=== PATIENT | male | born 1980 | race Hispanic/Latino ===

== ENCOUNTER 2019-09-26 08:03 | Outpatient (CLI) | payer OTHER ==
--- NOTE | 2019-09-29 09:52 | Ultrasound Report ---
BILATERAL DIGITAL DIAGNOSTIC MAMMOGRAM -- 09/26/2019 RIGHT COMPLETE BREAST ULTRASOUND INDICATION: Right breast yellow nipple discharge and pain. TECHNIQUE: Digital bilateral mammographic imaging was performed. Complete ultrasound of all four (4) quadrants was performed. COMPARISON: None available. FINDINGS: Breast Density: The breasts are heterogeneously dense, which may obscure small masses. There is obscured oval isodense mass in the right subareolar breast. No suspicious findings within th e left breast.. Ultrasound Findings: Complete sonographic evaluation of all four quadrants and retroareolar region wa s performed. There is a solid-appearing hypoechoic 4.3 x 4.8 x 1.8 cm mass in the right subareolar br east. Additionally, there is an ill-defined heterogenous 3.6 x 2.8 x 3.7 cm mass at the 8:00 position in the right breast, 6 cm from the nipple. A questionable dilated duct in the right breast at the 4: 00 periareolar location is also noted. IMPRESSION: Right breast subareolar mass measures up to 4.8 cm. An ultrasound-guided biopsy is recommended. Ill-defined heterogenous mass in the right breast at the 8:00 position for which ultrasound-guided bi opsy is recommended. BI-RADS Category 4: Suspicious for Malignancy. A "normal" or negative report should not discourage follow up or biopsy of a clinically significant f inding. A written summary of these findings will be mailed to the patient. The patient will be entered into a mammography reporting system which will generate a reminder letter for the patient's next appointmen t at the appropriate interval. According to the [employer], yearly mammograms are recommended starting at age 40 and continuing as long as a woman is in good health. Breast MRI is recommended for women with an christofer roximately 20-25% or greater lifetime risk of breast cancer, including women with a strong family his tory of breast or ovarian cancer and women who have been treated for Hodgkin's disease. Signer Name: Krishna Cummings MD Signed: 09/29/2019 9:48 AM Workstation Name: [id number]
== END 2019-09-26 08:04 | disposition home or self-care (01) ==
LOC: MAMMO 08:03
PROVIDERS: ATTEND Internal Medicine
DX: N63.41 Unspecified lump in right breast, subareolar (principal); N63.14 Unspecified lump in the right breast, lower inner quadrant; N64.52 Nipple discharge
CPT/HCPCS: 77066